=== PATIENT | female | born 1990 | race Caucasian/White ===

== ENCOUNTER 2020-11-17 19:01 | Inpatient (IN) | payer OTHER ==
[2020-11-17 19:09] VITALS: BMI 35.9
[2020-11-17 20:00] LABS: BASO % 0.3 % (0-2.0); EOS % 1.7 % (0-4.5); HEMOGLOBIN 11.9 GM/dL (10.7-15.3); LYMPH % 14.9 % (8-40); MCH 29.9 pg (25.7-33.7); MCHC 33.9 g/dl (32.0-36.0); MEAN CELL VOLUME 88.2 fl (80-96); MEAN PLT VOLUME 10.2 fl (7.5-11.1); NEUT % 77.1 % (42.8-82.8); PLATELET COUNT 222 K/MM3 (134-434); RBC 3.97 M/mm3 (3.60-5.2); RDW 14.5 % (11.6-15.6); WHITE BLOOD COUNT 7.2 K/mm3 (4.0-10.0)
[2020-11-17 20:07] LABS: INR 1.03 (0.83-1.09); PROTHROMBIN TIME (PATIENT) 12.4 SEC (9.7-13.0)
[2020-11-17 20:47] LABS: ALBUMIN 2.6 g/dl (3.4-5.0); CALCIUM 8.7 mg/dL (8.5-10.1)
[2020-11-17 20:48] LABS: BLOOD UREA NITROGEN 8.8 mg/dL (7-18)
[2020-11-17 20:50] LABS: CREATININE 0.6 mg/dL (0.55-1.3)
[2020-11-17 20:51] LABS: BILIRUBIN,TOTAL 0.4 mg/dL (0.2-1); TOT PROT 6.9 g/dl (6.4-8.2)
[2020-11-17] MEDS ORDERED: ACETAMINOPHEN 325 MG TABLET (FP) PO PRN (23:07)
[2020-11-17] MEDS ORDERED: ZOLPIDEM TARTRATE 5 MG TABLET PO PRN (23:07)
[2020-11-17] MEDS ORDERED: ONDANSETRON *ODT* 4 MG TABLET ONE (23:50)
[2020-11-17] MEDS ORDERED: MAG HYDROX/AL HYDROX/SIMETH 30 ML UNIT-DOSE CUP ONE (23:50)
[2020-11-18 00:44] LABS: EPI CELLS >36 /uL (0-25.1); HYALINE CASTS 1 /uL (0-3.1); PH,URINE 6.5 (5.0-8.0); URINE APPEARANCE CLOUDY; URINE BACTERIA 5584 /uL (0-1359); URINE BILIRUBIN NEGATIVE (NEGATIVE); URINE COLOR YELLOW; URINE GLUCOSE (UA) NEGATIVE (NEGATIVE); URINE KETONE NEGATIVE (NEGATIVE); URINE LEUK ESTERASE 2+ (NEGATIVE); URINE NITRITE NEGATIVE (NEGATIVE); URINE PROTEIN NEGATIVE (NEGATIVE); URINE RBC 10 /uL (0-23.9); URINE UROBILINOGEN 0.2 mg/dL (0.2-1.0); URINE WBC 236 /uL (0-25.8)
[2020-11-18 00:49] LABS: OPIATES, URI NEGATIVE ng/ml (CUTOFF=300); PHENCYCLIDINE,URINE NEGATIVE ng/ml (CUTOFF=25)
[2020-11-18 00:50] LABS: COCAINE, UR NEGATIVE ng/ml (CUTOFF=300); METHADONE, UR NEGATIVE ng/ml (CUTOFF=300); URINE AMPHETAMINES NEGATIVE ng/ml (CUTOFF=500); URINE BARBITURATES NEGATIVE ng/ml (CUTOFF=200); URINE BENZODIAZEPINES NEGATIVE ng/ml (CUTOFF=200)
[2020-11-18] MEDS: URSODIOL 300 MG CAPSULE PO SCH ×3 (00:56→21:35)
[2020-11-18 08:26] LABS: BASO % 0.6 % (0-2.0); EOS % 1.8 % (0-4.5); HEMATOCRIT 34.4 % (32.4-45.2); HEMOGLOBIN 11.7 GM/dL (10.7-15.3); MCH 29.6 pg (25.7-33.7); MCHC 33.9 g/dl (32.0-36.0); MEAN CELL VOLUME 87.2 fl (80-96); MEAN PLT VOLUME 10.1 fl (7.5-11.1); NEUT % 77.6 % (42.8-82.8); PLATELET COUNT 210 K/MM3 (134-434); RBC 3.94 M/mm3 (3.60-5.2); RDW 14.3 % (11.6-15.6); WHITE BLOOD COUNT 7.1 K/mm3 (4.0-10.0)
[2020-11-18 08:46] LABS: ALBUMIN 2.5 g/dl (3.4-5.0); BLOOD UREA NITROGEN 7.4 mg/dL (7-18); CALCIUM 8.5 mg/dL (8.5-10.1)
[2020-11-18 08:49] LABS: CREATININE 0.6 mg/dL (0.55-1.3)
[2020-11-18 08:51] LABS: BILIRUBIN,TOTAL 0.6 mg/dL (0.2-1); TOT PROT 6.7 g/dl (6.4-8.2)
[2020-11-18 19:12] LABS: ALBUMIN 2.6 g/dl (3.4-5.0); BILIRUBIN,TOTAL 0.5 mg/dL (0.2-1); BLOOD UREA NITROGEN 8.7 mg/dL (7-18); CALCIUM 8.6 mg/dL (8.5-10.1); CREATININE 0.7 mg/dL (0.55-1.3); TOT PROT 7.3 g/dl (6.4-8.2)
[2020-11-18 21:08] VITALS: BP 114/77; PULSE 98; TEMP 97.7
[2020-11-21 15:09] LABS: ALBUMIN % 12.1 % (.); ALPHA-1 FOR UPE 7.6 % (.); TOTAL PROTEIN, URINE 6.1 mg/dL (Not Estab.)
[2020-11-22 02:08] LABS: HEP B CORE AB, TOT Negative (Negative)
== END 2020-11-18 21:40 | disposition home or self-care (01) | DRG 566 ==
LOC: JER 19:01 → JLDR 22:30 → J3W 11-18 00:43
PROVIDERS: ADMIT Obstetrics & Gynecology; ATTEND Obstetrics & Gynecology
DX: O26.613 Liver and biliary tract disorders in pregnancy, third trimester (principal); K83.1 Obstruction of bile duct; O99.713 Diseases of the skin and subcutaneous tissue complicating pregnancy, third trimester; L29.8 Other pruritus; Z3A.28 28 weeks gestation of pregnancy; R74.01 Elevation of levels of liver transaminase levels; R74.8 Abnormal levels of other serum enzymes
CPT/HCPCS: 36415; 76705-TC; 76819-TC; 80053; 80307; 81003; 82542; 82962; 83615; 84156; 84166; 84550; 85025; 85610; 86704; 86706; 86707; 86708; 86709; 86850; 86900; 86901; 87340; 99285-25; C9803; U0003; U0005

== ENCOUNTER 2021-01-23 12:37 | Inpatient (IN) | payer OTHER ==
[2021-01-23] MEDS: ELECTROLYTE-148 SOLN 1,000 ML IV SCH (13:20)
[2021-01-23] MEDS ORDERED: CITRIC ACID/SODIUM CITRATE 30 ML UNIT-DOSE CUP PO ONE (13:43)
[2021-01-23] MEDS ORDERED: ELECTROLYTE-148 SOLN 500 ML IV ONE (13:43)
[2021-01-23] MEDS ORDERED: morphine SULFATE/PF 0.5 MG/ML (2cc Syringe - QUVA) EP ONE (14:14)
[2021-01-23] MEDS ORDERED: ONDANSETRON 4 MG/2 ML VIAL IVPUSH PRN (14:14)
[2021-01-23 14:39] VITALS: BMI 35.9
[2021-01-23] MEDS ORDERED: morphine SULFATE/PF 0.5 MG/ML (2cc Syringe - QUVA) ONE (15:34)
[2021-01-23] MEDS ORDERED: CLINDAMYCIN PHOSPHATE 600 MG/4 ML VIAL ONE (15:35)
[2021-01-23] MEDS ORDERED: PHENYLEPHRINE HCL 10 MG/1 ML SINGLE DOSE VIAL ONE (15:49)
[2021-01-23] MEDS ORDERED: OXYTOCIN 10 UNITS/ML VIAL ONE ×2 (15:56→16:15)
[2021-01-23] MEDS ORDERED: METHYLERGONOVINE MALEATE 0.2 MG/1 ML AMP IM PRN (16:23)
[2021-01-23] MEDS ORDERED: BENZOCAINE 28 GM HEMORRHOIDAL OINTMENT TP PRN (16:28)
[2021-01-23] MEDS ORDERED: BENZOCAINE 20% 57 GM BOTTLE TP PRN (16:28)
[2021-01-23] MEDS ORDERED: WITCH HAZEL 50% (TUCKS) 40 PAD/JAR PAD TP PRN (16:28)
[2021-01-23] MEDS ORDERED: IBUPROFEN 800 MG/8 ML IJ IVPB PRN (16:28)
[2021-01-23] MEDS ORDERED: SENNOSIDES/DOCUSATE COMBO (SENNA PLUS) TABLET (UD) PO PRN (16:28)
[2021-01-23] MEDS ORDERED: oxyCODONE HCL 5 MG TABLET PO PRN (16:28)
[2021-01-23] MEDS ORDERED: OXYTOCIN 20 UNITS in 0.9% NS 20 UNIT/1,000 ML INFUS.BAG IV SCH (16:30)
[2021-01-23] MEDS: FERROUS SO4 325 MG TABLET (FP) PO SCH (23:57)
[2021-01-24] MEDS: SIMETHICONE 80 MG TAB.CHEW (FP) PO PRN (09:02)
[2021-01-24] MEDS: IBUPROFEN 600 MG TABLET (FP) PO PRN ×3 (09:02→21:15)
[2021-01-24] MEDS: PRENATAL VITAMINS W/ FOLIC ACID TABLET (FP) PO SCH (09:02)
[2021-01-24] MEDS: FERROUS SO4 325 MG TABLET (FP) PO SCH ×2 (09:02→21:15)
[2021-01-24 10:00] LABS: BASO % 0.4 % (0-2.0); EOS % 0.7 % (0-4.5); HEMATOCRIT 28.3 % (32.4-45.2); HEMOGLOBIN 9.3 GM/dL (10.7-15.3); LYMPH % 15.3 % (8-40); MCH 26.6 pg (25.7-33.7); MCHC 32.9 g/dl (32.0-36.0); MEAN CELL VOLUME 80.9 fl (80-96); MEAN PLT VOLUME 9.6 fl (7.5-11.1); MONO % 6.4 % (3.8-10.2); NEUT % 77.2 % (42.8-82.8); PLATELET COUNT 188 10^3/uL (134-434); RDW 14.5 % (11.6-15.6); WHITE BLOOD COUNT 7.2 K/mm3 (4.0-10.0)
[2021-01-24] MEDS ORDERED: BISACODYL 10 MG SUPP.RECT RC PRN (16:23)
[2021-01-25] MEDS: IBUPROFEN 600 MG TABLET (FP) PO PRN ×4 (05:38→21:44)
[2021-01-25] MEDS: ACETAMINOPHEN 325 MG TABLET (FP) PO PRN ×2 (05:39→21:45)
[2021-01-25] MEDS: FERROUS SO4 325 MG TABLET (FP) PO SCH ×2 (09:04→21:44)
[2021-01-25] MEDS: PRENATAL VITAMINS W/ FOLIC ACID TABLET (FP) PO SCH (09:04)
[2021-01-25] MEDS: SIMETHICONE 80 MG TAB.CHEW (FP) PO PRN (09:04)
[2021-01-26] MEDS: ACETAMINOPHEN 325 MG TABLET (FP) PO PRN ×2 (08:42→12:59)
[2021-01-26] MEDS: SIMETHICONE 80 MG TAB.CHEW (FP) PO PRN ×2 (08:42→12:59)
[2021-01-26] MEDS: IBUPROFEN 600 MG TABLET (FP) PO PRN ×2 (08:42→12:59)
[2021-01-26] MEDS: FERROUS SO4 325 MG TABLET (FP) PO SCH (10:17)
[2021-01-26] MEDS: PRENATAL VITAMINS W/ FOLIC ACID TABLET (FP) PO SCH (10:17)
[2021-01-26 12:17] VITALS: BP 112/73; PULSE 76; TEMP 98.4
[2021-01-26] MEDS: ELECTROLYTE-148 SOLN 1,000 ML IV SCH (14:19)
== END 2021-01-26 14:10 | disposition home or self-care (01) | DRG 540 ==
LOC: JLDR 12:37 → J3W 17:43
PROVIDERS: ADMIT Obstetrics & Gynecology; ATTEND Obstetrics & Gynecology
PROC: 10D00Z1 Extraction of Products of Conception, Low, Open Approach (ICD-10-PCS; principal; 2021-01-23)
DX: O34.211 Maternal care for low transverse scar from previous cesarean delivery (principal); O26.62 Liver and biliary tract disorders in childbirth; K83.1 Obstruction of bile duct; O24.420 Gestational diabetes mellitus in childbirth, diet controlled; O69.81X0 Labor and delivery complicated by cord around neck, without compression, not applicable or unspecified; O90.81 Anemia of the puerperium; Z3A.37 37 weeks gestation of pregnancy; Z37.0 Single live birth; Z88.0 Allergy status to penicillin
CPT/HCPCS: 36415; 80053; 85025; 85610; 86780; 86850; 86900; 86901; 88307-TC; C9803; U0003; U0005

== ENCOUNTER 2022-02-03 19:34 | Emergency (ER) | payer OTHER ==
[2022-02-03 19:47] VITALS: BP 137/72; PULSE 105; TEMP 98.5; BMI 20.1
== END 2022-02-03 20:37 | disposition home or self-care (01) ==
LOC: JER 19:34
DX: U07.1 COVID-19 (principal)
CPT/HCPCS: 0241U-QW; 87651; 99283-25